=== PATIENT | male | born 1935 | race Caucasian/White ===

== ENCOUNTER 2024-05-04 13:05 | Outpatient (AMB) | payer MEDICARE, SELFPAY ==
--- NOTE | 2024-05-04 13:14 | MHC.OFFVIS ---
Intake Visit Reasons: OAB/BPH Intake Note: New patient presents today for initial visit for OAB/BPH Urology Medication:Tamsulosin, Finasteride Blood Thinner:Apixaban Antibiotic Allergies:none PVR:133ml Allergies No Known Allergies Allergy (Verified 05/04/24 14:35) Medication List - Last Reconciled 05/04/24 by Lynda Herzog, TILE LAYER- amlodipine mg PO DAILY apixaban (Eliquis) mg PO carvedilol mg PO finasteride mg PO DAILY lisinopril mg PO metformin mg PO nystatin topical sertraline mg PO DAILY simvastatin mg PO sitagliptin phos-metformin 50-1,000 mg (Janumet) tabs PO tamsulosin mg PO tamsulosin 0.4 mg PO DAILY HPI Comments Details: Hayden is a pleasant 88-year-old male patient of Dr. Laird who was accompanied by his and caregiver at today's office visit. 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 Heart disease, hypertension, aortic insufficiency, feeling of incomplete bladder emptying, nocturia, frequency of micturition, overactive bladder, elevated PSA, and BPH with lower urinary tract symptoms. He presents to the office today as a new patient for a longstanding history of urinary issues. In discussion with the patient and his who provides much of today's history she states patient has previously followed up with [facility] as well as Julieth Villanueva and Dr. Beckman. He reports currently be on Flomax and finasteride however continues with episodes of urinary urgency and frequency as well as feeling of incomplete bladder emptying. Patient's states he has a previous history of elevated PSA and has also underwent in office cystoscopy for question of bladder cancer. He has previously trialed Myrbetriq and Gemtesa without improvement in lower urinary tract symptoms. He otherwise denies hematuria, dysuria, foul smelling urine, flank pain, fever, and or chills. Patient's discusses at length how patient is bathroom behaviors have really affected his quality of life. We discussed obtaining retroperitoneal ultrasound and PSA for further assessment evaluation. DELVIS offered however deferred. Information provided regarding bladder diary. Unable to obtain urine for urinalysis today PVR 133 mL. We discussed bladder triggers and irritants as well as healthy bathroom behaviors and timed/scheduled voiding given patient with decreased mobility. [facility] Medical History Type 2 diabetes mellitus Sleep apnea Presbycusis, bilateral Other hyperlipidemia Other cerebrovascular disease Hemiplegia and hemiparesis following cerebral infarction affecting right dominant side Heart disease Essential (primary) hypertension Multiple falls Aortic insufficiency Feeling of incomplete bladder emptying Nocturia Frequency of micturition OAB (overactive bladder) Neoplasm of uncertain behavior of bladder Elevated PSA Benign prostatic hyperplasia with lower urinary tract symptoms Review of Systems Eyes Reports as per [facility] ENT Reports no additional complaints Card Reports as per [facility] Resp Reports as per [facility] GI Reports no additional complaints Reports as per [facility] Musc Reports as per [facility] Neuro Reports as per [facility] Psych Reports no additional complaints Endo Reports as per HPI Deep/Lymph Reports no additional complaints Aller/Immun Reports no additional complaints Physical Exam Const General: cooperative, comfortable, no acute distress, well developed, alert and awake Orientation/consciousness: oriented to person Limitations: ambulation with walker, wheelchair and other limitations (pressured speech) HEENT Head: Yes normal to inspection, Yes normocephalic and Yes atraumatic Ears: hearing grossly normal bilaterally Eyes General: appearance normal, both eyes and all related structures Neck Neck: Yes normal visual inspection and Yes trachea midline Chest Chest palpation & inspection: normal inspection of the chest Resp Effort & Inspection: normal respiratory effort and able to speak in complete sentences Cardio Rate: regular rate GI Inspection: Yes normal to inspection General: Yes no CVA tenderness Back/Spine/Pelvis Back: no CVA tenderness Skin General skin exam: no rashes or lesions noted Neuro General: oriented to person Extrem Other: Right-sided hemiparesis Psych Appearance: grossly normal and well kempt Speech and movement: Slowed speech present (Psych) and Pressured speech present Attitude: cooperative Thought content: Normal thought content present Insight: Limited insight present (Psych) Judgement: Limited judgement present (Psych) Office Procedures Post Void Residual Post Residual Void Post Void Residual (PVR): 133 [id number] Void Residual by ultrasound Assessment & Plan Assessment & Plan (1) Frequency of micturition: Code(s): R35.0 - Frequency of micturition Category: Medical (2) Feeling of incomplete bladder emptying: Code(s): R39.14 - Feeling of incomplete bladder emptying Category: Medical (3) Lower urinary tract symptoms: Code(s): R39.9 - Unspecified symptoms and signs involving the genitourinary system Category: Medical (4) Urinary urgency: Code(s): R39.15 - Urgency of urination Category: Medical (5) History of elevated PSA: Code(s): Z87.898 - Personal history of other specified conditions Category: Medical Plan Unable to obtain urine for urinalysis PVR 133 mL. We discussed obtaining bladder diary for further assessment evaluation. Will obtain retroperitoneal ultrasound for further assessment evaluation. Will obtain PSA for further assessment evaluation. We discussed at length healthy bathroom behaviors as well as timed/scheduled voiding. We discussed bladder triggers/irritants. Previous medical records were reviewed We discussed at length potential causes of lower urinary tract symptoms patient was experiencing as well as further workup and interventions and risks and benefits of these interventions. We discussed possible near future in office urodynamics and or in office cystoscopy for further assessment evaluation. Continue finasteride and Flomax as prescribed. We discussed importance of management and diabetes for improvement in lower urinary tract symptoms as well as overall health and well-being. Follow-up in 1-3 months with labs and imaging; or sooner with any issues, concerns, and or questions. Orders: Orders US retroperitoneal comp Today R35.0 - Frequency of micturition, R39.14 - Feeling of incomplete bladder emptying, R39.15 - Urgency of urination, R39.9 - Unspecified symptoms and signs involving the genitourinary system, Z87.898 - Personal history of other specified conditions Prostate Specific Antigen Today R35.0 - Frequency of micturition, R39.14 - Feeling of incomplete bladder emptying, R39.15 - Urgency of urination, R39.9 - Unspecified symptoms and signs involving the genitourinary system, Z87.898 - Personal history of other specified conditions AMB Post Void Residual by ultrasound Today N39.41 - Urge incontinence Patient Instructions: The patient had an opportunity to ask questions regarding the treatment plan. All questions were answered. Physical exam, labs, and imaging were discussed and reviewed in detail. As well as risks, benefits, and discussion of treatment choices. No major barriers to understanding were identified. The patient expressed understanding and agreement with the above treatment plan. The patient was made aware they should contact our office by phone for worsening of their current condition, the appearance of new symptoms, or with any questions or concerns. Compliance is encouraged with any medications and follow up testing that is ordered. It is a privilege to be allowed the opportunity to participate in? your urological care.? Again, if you have any questions or concerns If you have any questions or concerns please do not hesitate to contact me. The office is [phone]. This note is constructed using voice recognition software. While every effort has been made to ensure accuracy design engineering technician errors may have been included. Yours sincerely, ELAINE Vargas Coding Level of Care Code New Pt Level 4 (06321) Diagnoses Frequency of micturition R35.0 Feeling of incomplete bladder emptying R39.14 Lower urinary tract symptoms R39.9 Urinary urgency R39.15 History of elevated PSA Z87.898 CPT Codes Post Residual Void - PVR CPT Code: 42519-Alvn Void Residual by ultrasound ([id number]) Time Spent (min) 35
== END 2024-05-04 14:34 | disposition home or self-care (01) ==
LOC: HO.HUSH 13:05
PROVIDERS: PCP Internal Medicine; Visit Provider Nurse Practitioner Family
DX: R35.0 Frequency of micturition (principal); R39.14 Feeling of incomplete bladder emptying; R39.9 Unspecified symptoms and signs involving the genitourinary system; R39.15 Urgency of urination; Z87.898 Personal history of other specified conditions
CPT/HCPCS: 99204

== ENCOUNTER → 2024-05-04 13:05 | Outpatient (BNVA) | payer MEDICARE, SELFPAY | PROVIDERS: PCP Internal Medicine; Visit Provider Nurse Practitioner Family | DX: R35.0 Frequency of micturition (principal); R39.14 Feeling of incomplete bladder emptying; R39.15 Urgency of urination; R39.9 Unspecified symptoms and signs involving the genitourinary system; Z87.898 Personal history of other specified conditions | CPT/HCPCS: 51798; 99202 ==

== ENCOUNTER 2024-08-31 12:21 | Outpatient (REF) | payer MEDICARE, SELFPAY ==
--- NOTE | ~2024-08-31 | US_ITS ---
CLINICAL HISTORY: Z87.898 - Personal history of other specified conditions --- Additional Notes or Special Instructions: elevated PSA, increased frequency of urination, lower urinary tract symptoms US retroperitoneum and pelvis limited Comparison: None Findings: Right kidney normal size and echotexture, 10.4 cm length. Simple cysts 5.0 x 4.5 x 4.4 cm and 3.0 x 2.1 x 2.3 cm in the lower pole, no calculus or hydronephrosis. Normal color flow. Left kidney normal size and echotexture, 11.7 cm in length. No hydronephrosis, mass or calculus. Normal color flow. Lobulated bladder contour with multiple diverticula, no calculus or apparent mass, prevoid bladder volume is 340 mL, incomplete emptying with large postvoid residual volume 175 mL. Bilateral ureteral jets are not visualized. Prostate measures 6.4 x 3.7 x 4.5 cm (TR X AP X cc), 56 mL, the inferior aspect of prostate is partially obscured by rectal gas, the length is likely underestimated. No free fluid in the pelvis. Impression: 1. Right renal simple cysts. 2. Bladder diverticula and incomplete emptying. 3. Prostatomegaly. This document has been electronically signed by: Noemi Viera MD on 09/01/2024 12:25:00
== END 2024-08-31 12:22 | disposition home or self-care (01) ==
LOC: HO.US 12:21
PROVIDERS: PCP Internal Medicine; Visit Provider Nurse Practitioner Family
DX: R35.0 Frequency of micturition (principal); R39.14 Feeling of incomplete bladder emptying; R39.15 Urgency of urination; R39.9 Unspecified symptoms and signs involving the genitourinary system; Z87.898 Personal history of other specified conditions
CPT/HCPCS: 76770

== ENCOUNTER → 2024-08-31 12:23 | Outpatient (BNV) | payer MEDICARE, SELFPAY | PROVIDERS: PCP Internal Medicine; Visit Provider Radiology Diagnostic Radiology | DX: N28.1 Cyst of kidney, acquired (principal); N40.1 Benign prostatic hyperplasia with lower urinary tract symptoms | CPT/HCPCS: 76770 ==

== ENCOUNTER 2024-11-23 11:55 | Outpatient (REF) | payer MEDICARE, SELFPAY ==
[2024-11-23 13:39] LABS: Prostate Specific Antigen 1.48 ng/mL (<0.05-4.0)
== END 2024-11-23 11:56 | disposition home or self-care (01) ==
LOC: HO.10HDL 11:55
PROVIDERS: Visit Provider Nurse Practitioner Family
DX: Z12.5 Encounter for screening for malignant neoplasm of prostate (principal); R39.9 Unspecified symptoms and signs involving the genitourinary system; R39.15 Urgency of urination; R35.0 Frequency of micturition; R39.14 Feeling of incomplete bladder emptying; Z87.898 Personal history of other specified conditions
CPT/HCPCS: 36415; 84153